=== PATIENT | male | born 2000 | race American Indian/Alaskan Native ===

== ENCOUNTER 2021-06-08 09:35 | Emergency (ER) | payer SELFPAY ==
[2021-06-08 09:39] VITALS: BP 123/67
--- NOTE | 2021-06-08 11:08 | Emergency Department Report ---
ED Headache HPI - General Chief Complaint: Headache Stated Complaint: HEADACHES Time Seen by Provider: 06/08/21 11:01 - History of Present Illness Initial Comments: 21-year-old -[place] male presents to the emergency room for intermittent headache for the last 2 to 3 days. Patient reports at times he will have dizziness while at work. 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 States that he has no headache at this time and feels good. Reports that he needs a work excuse. Timing/Duration: waxing and waning Recent Head Trauma: occasional headaches Associated Symptoms: other (intermittent dizziness). denies: fatigue Allergies/Adverse Reactions: Allergies No Known Allergies Allergy (Unverified 06/08/21 09:36) ED Review of Systems ROS: Stated complaint: HEADACHES Other details as noted in HPI Comment: All other systems reviewed and negative ED Past Medical Hx - Past Medical History Previous Medical History?: No - Surgical History Past Surgical History?: No - Social History Smoking Status: Never Smoker Substance Use Type: None ED Physical Exam - General Limitations: No Limitations General appearance: alert, in no apparent distress - Head Head exam: Present: atraumatic, normocephalic - Eye Eye exam: Present: normal appearance - ENT ENT exam: Present: mucous membranes moist - Neck Neck exam: Present: normal inspection - Respiratory Respiratory exam: Present: normal lung sounds bilaterally. Absent: respiratory distress - Cardiovascular Cardiovascular Exam: Present: regular rate, normal rhythm. Absent: systolic murmur, diastolic murmur, rubs, gallop - GI/Abdominal GI/Abdominal exam: Present: soft, normal bowel sounds - Rectal Rectal exam: Present: deferred - Extremities Exam Extremities exam: Present: normal inspection - Back Exam Back exam: Present: normal inspection - Neurological Exam Neurological exam: Present: alert, oriented X3 - Psychiatric Psychiatric exam: Present: normal affect, normal mood - Skin Skin exam: Present: warm, dry, intact, normal color. Absent: rash ED Course Vital Signs 06/08/21 06/08/21 09:38 10:05 Temperature 98.5 F Pulse Rate 76 Respiratory 16 18 Rate Blood Pressure 123/67 O2 Sat by Pulse 97 99 Oximetry ED Medical Decision Making - Medical Decision Making 21-year-old -[place] male presents to the emergency room for intermittent headache for the last 2 to 3 days. Patient reports at times he will have dizziness while at work. 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 States that he has no headache at this time and feels good. Reports that he needs a work excuse. Patient currently has no complaints at this time. Discussed with patient we will refer him to a primary care provider. Critical care attestation.: If time is entered above; I have spent that time in minutes in the direct care of this critically ill patient, excluding procedure time. ED Disposition Clinical Impression: Headache Disposition: 01 HOME / SELF CARE / HOMELESS Is pt being admited?: No Does the pt Need Aspirin: No Condition: Stable Additional Instructions: Please try Ibuprofen and or Tylenol follow up with a primary Care. Referrals: JESSICA MCCURDY MD [Staff Physician] - 3-5 Days Forms: Work/School Release Form(ED) Time of Disposition: 11:10
== END 2021-06-08 11:27 | disposition home or self-care (01) ==
LOC: ED 09:35
DX: R51.9 Headache, unspecified (principal)
CPT/HCPCS: 99282